=== PATIENT | female | born 1965 | race Caucasian/White ===

== ENCOUNTER 2024-12-15 06:24 | Inpatient (IN) | payer BC, MEDICAID, OTHER ==
[2024-12-15] MEDS ORDERED: Ropivacaine 49.25 ML, Ketorolac 30 MG, EPINEPHrine 0.5 MG, cloNIDine 80 MCG in Sodium C... INJECT SCH (07:00)
[2024-12-15] MEDS ORDERED: Famotidine 20 MG/2 ML SDV ONE (07:13)
[2024-12-15] MEDS: Lactated Ringers 1,000 ML IV SCH (07:13)
[2024-12-15] MEDS: Famotidine 20 MG/2 ML SDV IVPUSH SCH (07:20)
[2024-12-15] MEDS ORDERED: propofoL 500 MG/50 ML 50 ML ONE (07:23)
[2024-12-15] MEDS ORDERED: Midazolam 1 MG/ML 2 ML SDV ONE (07:23)
[2024-12-15] MEDS ORDERED: Ketamine HCL/NACL, ISO-OSM 50 MG/5 ML Syringe ONE (07:23)
[2024-12-15] MEDS ORDERED: fentaNYL 100 MCG/2 ML SDV ONE (07:23)
[2024-12-15] MEDS ORDERED: Ropivacaine 0.5% 5 MG/ML 30 ML SDV ONE (07:31)
[2024-12-15] MEDS ORDERED: Albuterol 0.083% 2.5 MG/3 ML Neb Soln NEB PRN (07:44)
[2024-12-15] MEDS ORDERED: Naloxone 0.4 MG/ML SDV IVPUSH PRN (07:44)
[2024-12-15] MEDS ORDERED: fentaNYL 50 MCG/ML SDV IVPUSH PRN (07:44)
[2024-12-15] MEDS ORDERED: Morphine 2 MG/ML SYRINGE IVPUSH PRN (07:44)
[2024-12-15] MEDS ORDERED: Ondansetron 4 MG/2 ML SDV IVPUSH PRN ×2 (07:44→11:03)
[2024-12-15] MEDS ORDERED: Metoclopramide 10 MG/2 ML SDV IVPUSH PRN (07:44)
[2024-12-15] MEDS ORDERED: Phenylephrine HCl In 0.9% NaCl 1 MG/10 ML Syringe IVPUSH PRN (07:44)
[2024-12-15] MEDS: Scopalamine 1mg/3day Transdermal Patch ONE (07:51)
[2024-12-15] MEDS: Scopalamine 1mg/3day Transdermal Patch TRDERM SCH (07:52)
[2024-12-15] MEDS ORDERED: Tranexamic Acid in NACL,ISO-OS 1,000 MG/100 ML Bag IV ONE (08:00)
[2024-12-15] MEDS ORDERED: ceFAZolin 2 GM Vial ONE (08:15)
[2024-12-15] MEDS ORDERED: Magnesium Sulfate (4.06 MEQ/ML) 5 GM/10 ML SDV ONE (08:19)
[2024-12-15] MEDS ORDERED: Lidocaine 2% 5 ML SDV ONE (08:19)
[2024-12-15] MEDS ORDERED: Sodium Chloride 0.9% 20 ML ONE ×2 (08:21→08:59)
[2024-12-15] MEDS ORDERED: dexmedeTOMIDine HCl 200 MCG/2 ML SDV ONE (08:21)
[2024-12-15] MEDS ORDERED: Tranexamic Acid 1,000 MG/10 ML Vial ONE (08:31)
[2024-12-15] MEDS ORDERED: Ondansetron 4 MG/2 ML SDV ONE (08:41)
[2024-12-15] MEDS ORDERED: ePHEDrine 50 MG/ML SDV ONE (08:59)
[2024-12-15] MEDS ORDERED: Propofol 200 MG/20 ML SDV ONE ×3 (09:16→10:18)
[2024-12-15] MEDS ORDERED: Metoprolol Tartrate 5 MG/5 ML SDV ONE (10:06)
[2024-12-15] MEDS ORDERED: traMADol 50 MG Tab PO PRN ×2 (11:03)
[2024-12-15] MEDS ORDERED: Sodium Chloride 0.9% 2.5 ML Syringe FLUSH PRN (11:03)
[2024-12-15] MEDS ORDERED: Sodium Chloride 0.9% 10 ML Syringe FLUSH PRN (11:03)
[2024-12-15] MEDS ORDERED: oxyCODONE 5 MG Tab PO PRN (11:03)
[2024-12-15] MEDS ORDERED: diphenhydrAMINE 25 MG Cap PO PRN (11:03)
[2024-12-15] MEDS: Ketorolac 30 MG/ML SDV IVPUSH SCH (11:47)
[2024-12-15] MEDS: HYDROmorphone 1 MG/ML Syringe IVPUSH PRN (11:54)
[2024-12-15] MEDS ORDERED: 50% Dextrose in Water 50 ML Syringe IVPUSH PRN (12:45)
[2024-12-15] MEDS ORDERED: Glucagon,Human Recombinant 1 MG Vial IM PRN (12:45)
[2024-12-15] MEDS: Lidocaine 1% 0 ML ONE (12:47)
[2024-12-15] MEDS: Tranexamic Acid in NACL,ISO-OS 1,000 MG in Premix Bag 1 BAG IV ONE (12:47)
[2024-12-15 13:00] LABS: BASOPHILS ABSOLUTE AUTO 0.06 K/uL (0.00-0.20); BASOPHILS PERCENT AUTO 0.5 % (0.0-1.0); EOSINOPHILS PERCENT AUTO 0.8 % (0.0-6.0); HEMATOCRIT 36.2 % (37.0-47.0); HEMOGLOBIN 11.9 g/dL (12.0-16.0); IMMATURE GRAN ABSOLUTE AUTO 0.05 K/uL (0.00-0.05); IMMATURE GRAN PERCENT AUTO 0.4 % (0.0-0.4); LYMPHOCYTES ABSOLUTE AUTO 1.82 K/uL (1.00-4.80); LYMPHOCYTES PERCENT AUTO 13.9 % (24.0-44.0); MEAN CORPUSCULAR HEMOGLOBIN 33.3 pg (28.0-32.0); MEAN CORPUSCULAR HGB CONC 32.9 g/dL (32.0-36.0); MEAN CORPUSCULAR VOLUME 101.4 fL (83.0-99.0); MEAN PLATELET VOLUME 9.2 fL (9.4-12.3); MONOCYTES ABSOLUTE AUTO 0.64 K/uL (0.00-0.80); MONOCYTES PERCENT AUTO 4.9 % (0.0-8.0); NEUTROPHILS ABSOLUTE AUTO 10.44 K/uL (1.80-7.70); NEUTROPHILS PERCENT AUTO 79.5 % (41.0-71.0); PLATELET COUNT,PLT 254 K/uL (150-400); RED BLOOD CELL COUNT 3.57 M/uL (4.10-5.30); WHITE BLOOD CELL COUNT,WBC 13.11 K/uL (3.9-11.3)
[2024-12-15] MEDS: Acetaminophen 325 MG Tab PO SCH (13:00)
[2024-12-15 13:17] LABS: CALCIUM 8.3 mg/dL (8.5-10.1); CARBON DIOXIDE,CO2 26.5 mmol/L (21.0-32.0); CREATININE 0.8 mg/dL (0.6-1.0); EST CRCL DRUG DOSING (CG) 68.97 mL/min; MAGNESIUM 2.1 mg/dL (1.8-2.4)
[2024-12-15] MEDS: Insulin Aspart 100 Units/ML 3 ML Pen SUBCUT SCH (16:22)
[2024-12-15] MEDS: ceFAZolin 2 GM in Sodium Chloride 0.9% 50 ML IV SCH ×2 (16:24→17:21)
[2024-12-15] MEDS: Aspirin 325 MG Tab PO SCH (18:22)
[2024-12-15] MEDS: Docusate Sodium 100 MG Cap PO SCH (21:44)
[2024-12-16 06:19] LABS: HEMATOCRIT 30.8 % (37.0-47.0); HEMOGLOBIN 10.4 g/dL (12.0-16.0)
[2024-12-16 06:39] LABS: CALCIUM 8.4 mg/dL (8.5-10.1); CARBON DIOXIDE,CO2 24.8 mmol/L (21.0-32.0); EST CRCL DRUG DOSING (CG) 55.18 mL/min; MAGNESIUM 1.8 mg/dL (1.8-2.4); POTASSIUM,K 4.4 mmol/L (3.5-5.1)
[2024-12-16] MEDS: Polyethylene Glycol 3350 Powder 17 GM Packet PO SCH (08:27)
[2024-12-16] MEDS: oxyCODONE 5 MG Tab PO PRN (08:28)
[2024-12-16] MEDS: Desvenlafaxine Succinate 25 MG TAB.ER PO SCH (08:29)
[2024-12-16] MEDS: Lisinopril 10 MG Tab PO SCH (08:30)
[2024-12-16] MEDS: Famotidine 20 MG Tab PO SCH (08:31)
[2024-12-16] MEDS: Hydrochlorothiazide 12.5 MG Cap PO SCH (08:32)
[2024-12-16] MEDS: Ezetimibe 10 MG Tab PO SCH (08:32)
[2024-12-16] MEDS ORDERED: TOLTERODINE TARTRATE 2 MG PO SCH (09:00)
[2024-12-16 13:59] VITALS: BP 162/85; PULSE 92
[2024-12-16] MEDS ORDERED: Pravastatin 40 MG Tab PO SCH (21:00)
== END 2024-12-16 15:20 | disposition home or self-care (01) | DRG 326 ==
LOC: MW.SDS 06:24 → MW.MS 12:02
PROVIDERS: ADMIT Orthopaedic Surgery; ATTEND Orthopaedic Surgery
PROC: 0SRD0J9 Replacement of Left Knee Joint with Synthetic Substitute, Cemented, Open Approach (ICD-10-PCS; principal; 2024-12-15 08:00)
DX: M17.12 Unilateral primary osteoarthritis, left knee (principal); F41.9 Anxiety disorder, unspecified; F32.A Depression, unspecified; I10 Essential (primary) hypertension; D50.9 Iron deficiency anemia, unspecified; F32.9 Major depressive disorder, single episode, unspecified; E66.3 Overweight; G47.30 Sleep apnea, unspecified; I83.90 Asymptomatic varicose veins of unspecified lower extremity; H73.90 Unspecified disorder of tympanic membrane, unspecified ear; Z96.651 Presence of right artificial knee joint; F10.90 Alcohol use, unspecified, uncomplicated; E78.00 Pure hypercholesterolemia, unspecified; H54.7 Unspecified visual loss; E11.65 Type 2 diabetes mellitus with hyperglycemia; N39.46 Mixed incontinence; Z79.82 Long term (current) use of aspirin; Z79.899 Other long term (current) drug therapy; Z88.0 Allergy status to penicillin; Z88.8 Allergy status to other drugs, medicaments and biological substances; Z68.38 Body mass index [BMI] 38.0-38.9, adult; Z90.710 Acquired absence of both cervix and uterus; Z90.89 Acquired absence of other organs; Z98.51 Tubal ligation status; Z78.0 Asymptomatic menopausal state; Z98.890 Other specified postprocedural states; Z87.891 Personal history of nicotine dependence; Z79.84 Long term (current) use of oral hypoglycemic drugs; Z79.02 Long term (current) use of antithrombotics/antiplatelets
CPT/HCPCS: 01400; 36415; 64447; 73560-26-LT; 73560-LT; 80048; 82947; 83735; 85014; 85018; 85025; 86850; 86900; 86901; 97110-GP; 97162-GP; 97530-GP; A9270-GY; C1776; J0131; J0171; J0690; J0735; J1171; J1815-GY; J1885; J2003; J2250; J2405; J2704; J2795; J3010; J3490; J7120